=== PATIENT | male | born 1940 | race Caucasian/White ===

== ENCOUNTER 2021-09-21 09:57 | Observation (INO) ==
[2021-09-21 11:31] LABS: ABS Eosinophils 0.1 10^3/ul (0-0.6); ABS Lymphocytes 0.6 10^3/ul (1.0-4.8); ABS Monocytes 0.9 10^3/ul (0-0.8); ABS Neutrophils 5.5 10^3/ul (1.5-7.7); Eosinophil % 1.3 %; Hematocrit 38 % (42-52); Hemoglobin 12.6 g/dL (14.0-18.0); Mean Corpuscular HGB Conc 34 g/dL (31-36); Mean Corpuscular Hemoglobin 31 pg (27-31); Mean Corpuscular Volume 92 fL (80-94); Mean Platelet Volume 9.6 fL (7.4-10.4); Platelet Count 180 10^3/uL (150-450); Red Blood Count 4.08 10^6 /uL (4.18-5.48); Red Cell Distribution Width 16 % (10-15); White Blood Count 7.2 10^3/uL (3.5-10.8)
[2021-09-21 11:49] LABS: ALT 18 U/L (7-52); Albumin 3.7 g/dL (3.2-5.2); Albumin/Globulin Ratio 1.3 (1-3); Alkaline Phosphatase 91 U/L (35-149); Blood Urea Nitrogen 27 mg/dL (6-24); CO2 Carbon Dioxide 27 mmol/L (22-32); Calcium 8.9 mg/dL (8.6-10.3); Chloride 108 mmol/L (101-111); Globulin 2.9 g/dL (2-4); Glucose 105 mg/dL (70-100); Sodium 140 mmol/L (135-145); Total Protein 6.6 g/dL (6.4-8.9); eGFR CKD-EPI 70.2 (>60)
[2021-09-21 11:51] LABS: Troponin I 0.02 ng/mL (<0.03)
[2021-09-21 12:02] LABS: Anion Gap 5 mmol/L (2-11)
[2021-09-21] MEDS ORDERED: Furosemide 40 mg/4 ml IV VIAL IV SLOW PU ONE (12:21)
[2021-09-21] MEDS ORDERED: Furosemide 40 mg/4 ml IV VIAL ONE (12:21)
[2021-09-21] MEDS ORDERED: Metoprolol Tartrate 5 mg VIAL 5 ml VIAL (1 mg/ml) IV ONE (12:48)
[2021-09-21 15:27] LABS: INR 2.23 (0.86-1.15)
[2021-09-21 18:43] LABS: Body Fluid WBC 825 /mcL
[2021-09-21 19:08] LABS: Body Fluid Appearance Clear; Body Fluid Color Yellow; Body Fluid Mono 29 %; Body Fluid Source Pleural Fluid; Body Fluid Total Cells Counted 200
[2021-09-21 19:09] LABS: Body Fluid NRBC 1
[2021-09-22 07:30] LABS: Calcium 8.3 mg/dL (8.6-10.3); Magnesium 1.8 mg/dL (1.9-2.7); Potassium 4.1 mmol/L (3.5-5.0); eGFR CKD-EPI 64.3 (>60)
[2021-09-22] MEDS ORDERED: Magnesium Sulfate 2 gm BAG 2 GM/50 ML BAG IVPB ONE (07:40)
[2021-09-22] MEDS ORDERED: Furosemide 40 mg/4 ml IV VIAL IV SLOW PU ONE (09:00)
[2021-09-22 11:46] VITALS: BP 121/63
[2021-09-24 13:17] LABS: Lactate Dehydrogenase, BF 150 U/L
[2021-09-24 13:58] LABS: Fluid Type, Protein, Total PLEURAL; Glucose, BF 113 mg/dL
== END 2021-09-22 14:45 | disposition home or self-care (01) ==
LOC: ED 09:57 → EDHOLD 09:57 → SUATTDRO 13:33 → MEDTELE 15:35
PROVIDERS: ADMIT Student in an Organized Health Care Education/Training Program; ATTEND Family Medicine